=== PATIENT | female | born 1970 | race Caucasian/White ===

== ENCOUNTER 2018-10-08 11:54 | Emergency (ER) | payer OTHER ==
[~2018-10-08] VITALS: Ht 172.7 cm; Wt 63.5 kg
[2018-10-08 12:16] VITALS: BP 139/83
[2018-10-08] MEDS ORDERED: IRBE150T49 PO (12:31)
[2018-10-08] MEDS ORDERED: PROBIOTIC (12:31)
[2018-10-08] MEDS ORDERED: POTASSIUM (12:31)
[2018-10-08] MEDS ORDERED: BUPR-173 PO (12:31)
[2018-10-08] MEDS ORDERED: PANT40TA3 PO (12:31)
[2018-10-08] MEDS ORDERED: HYDR-3307 PO (12:31)
[2018-10-08] MEDS ORDERED: QVAR (12:31)
[2018-10-08] MEDS ORDERED: PROM25TA10 PO (12:31)
[2018-10-08] MEDS ORDERED: ZOLP10TA PO (12:34)
[2018-10-08 14:23] LABS: BASOPHILS # (AUTO) 0.06 x10^3/uL (0-0.1); BASOPHILS % (AUTO) 1 % (0-1); EOSINOPHILS # (AUTO) 0.06 x10^3/uL (0-0.4); EOSINOPHILS % (AUTO) 1 % (1-7); LYMPHOCYTES # (AUTO) 2.53 x10^3/uL (1-3.4); LYMPHOCYTES % (AUTO) 24 % (22-44); MD NO; MEAN CORPUSCULAR HEMOGLOBIN 32.1 pg (27.0-34.8); MEAN CORPUSCULAR HGB CONC 33.5 g/dL (32.4-35.8); MEAN CORPUSCULAR VOLUME 96.1 fL (80-100); MEAN PLATELET VOLUME 7.8 fL (7.4-10.4); MONOCYTES # (AUTO) 0.41 x10^3/uL (0.2-0.8); MONOCYTES % (AUTO) 4 % (2-9); NEUTROPHILS # (AUTO) 7.42 x10^3/uL (1.8-6.8); NEUTROPHILS % (AUTO) 71 % (42-75); PLATELET COUNT 374 x10^3/uL (130-400); RED BLOOD COUNT 4.28 x10^6/uL (3.82-5.3); RED CELL DISTRIBUTION WIDTH 13.2 % (9.6-15.2)
[2018-10-08 14:36] LABS: ALBUMIN 4.2 g/dL (3.4-5.0); ANION GAP 9 mmol/L (5-15); CALCIUM 9.1 mg/dL (8.5-10.1); CHLORIDE 106 mmol/L (98-107)
[2018-10-08 14:41] LABS: ALANINE AMINOTRANSFERASE 19 U/L (12-78); ALKALINE PHOSPHATASE 49 U/L (45-117); BILIRUBIN,TOTAL 1.1 mg/dL (0.2-1.0); TOTAL PROTEIN 7.5 g/dL (6.4-8.2)
[2018-10-08 14:51] LABS: MICROSCOPIC NOT IND
[2018-10-08 14:56] LABS: CULTURE INDICATED? NO
== END 2018-10-08 15:30 | disposition home or self-care (01) ==
LOC: ED 15:20
DX: R19.7 Diarrhea, unspecified (principal); R11.2 Nausea with vomiting, unspecified; J00 Acute nasopharyngitis [common cold]; B34.9 Viral infection, unspecified; I10 Essential (primary) hypertension; K50.90 Crohn's disease, unspecified, without complications
CPT/HCPCS: 36415; 71046; 80053; 81003; 83690; 83735; 85025; 93005; 99284